=== PATIENT | male | born 1995 | race Two or more races ===

== ENCOUNTER 2017-02-13 05:34 | Day surgery (SDC) | payer SELFPAY ==
[~2017-02-13 05:34] MED LIST: IBUPROFEN400 M1 PO; KEFLEX500 M4 PO; LORTAB 5-500 T1 EAC1 PO; VITAMIN B-12 PO; [UNRECOGNIZED DRUG - REMARK] PO
[2017-02-13 07:02] LABS: BASO % 0.3 % (0-2); EOS % 2.6 % (0-7); EOSINOPHIL ABSOLUTE COUNT 0.2 tho/cmm (0.0-0.7); HCT-HEMATOCRIT 39.7 % (36.0-53.5); IMMATURE GRANULOCYTES ABSOLUTE 0.02 tho/cmm (0-0.03); IMMATURE GRANULOCYTES PERCENT 0.3 % (0-0.3); LYMPH % 47.3 % (20-45); LYMPH ABSOLUTE COUNT 3.5 tho/cmm (0.8-4.5); MCH (MEAN CORPUSCULAR HGB) 30.3 pg (28.0-32.0); MCHC MEAN CORPUSCULAR HGB CONC 35.3 % (32.0-36.0); MCV (MEAN CELL VOLUME) 85.9 fl (82.0-96.0); MEAN PLATELET VOLUME 11.6 cmc (9.4-12.4); MONO % 8.9 % (0-12); MONOCYTE ABSOLUTE COUNT 0.7 tho/cmm (0.0-1.2); NEUTROPHILS % 40.6 % (40-80); PLATELET COUNT 212 tho/cmm (150-450); RED BLOOD COUNT 4.62 mil/cmm (4.40-5.70); RED CELL DISTRIBUTION WIDTH 11.7 % (12.4-16.4); WHITE BLOOD COUNT 7.3 tho/cmm (4.0-10.0)
== END 2017-02-13 11:25 ==
LOC: SRG 05:34 → SHSB 05:39 → ORW 07:27 → PACU 08:35 → SHSB 09:47
PROVIDERS: Surgery
PROC: 0JB90ZZ Excision of Buttock Subcutaneous Tissue and Fascia, Open Approach (ICD-10-PCS; principal; 2017-02-13)
PROC: 0HX8XZZ Transfer Buttock Skin, External Approach (ICD-10-PCS; 2017-02-13)
DX: L05.91 Pilonidal cyst without abscess (principal); F12.929 Cannabis use, unspecified with intoxication, unspecified; Z79.2 Long term (current) use of antibiotics
CPT/HCPCS: J0131; J1335; J1885; J3010; Q9968